=== PATIENT | female | born 1965 | race Caucasian/White ===

== ENCOUNTER 2024-07-24 18:30 | Emergency (ER) | payer SELFPAY ==
[2024-07-24] MEDS ORDERED: FENTANYL CITR 100 MCG/2 ML ONE ×3 (18:56→23:12)
[2024-07-24] MEDS ORDERED: ONDANSETRON 4 MG/2 ML VIAL ONE (18:56)
--- NOTE | 2024-07-24 20:19 | RAD REPORT ---
Exam:Femur Right CLINICAL HISTORY: Right leg pain. FINDINGS: No fracture involving the right femur seen.
--- NOTE | 2024-07-24 20:21 | RAD REPORT ---
EXAMINATION: Tib Fib Right CLINICAL INDICATION: Leg pain FINDINGS: Mildly depressed fracture involves the lateral tibial plateau and tibial spines extending inferiorly and medially. Mild to moderate displacement of the fracture fragments is present. Moderate joint effusion No dislocation
--- NOTE | 2024-07-24 20:33 | ER ---
Nurse's Notes [facility] Name: Lissette Harp Age: 59 yrs Sex: Female : 1965 Arrival Date: 07/24/2024 Time: 18:30 Bed 10 Private MD: Diagnosis: Mildly depressed fracture involving the lateral tibial plateau and tibial spines extending inferiorly and medially Presentation: 07/24 18:33 Chief complaint: Patient states: coming out of back door, fell off of step, right knee ko1 with deformity. Coronavirus screen: At this time, the client does not indicate any symptoms associated with coronavirus-19. Ebola Screen: No symptoms or risks identified at this time. Initial Sepsis Screen: Does the patient meet any 2 criteria? No. Patient's initial sepsis screen is negative. Does the patient have a suspected source of infection? No. Patient's initial sepsis screen is negative. Risk Assessment: Do you want to hurt yourself or someone else? Patient reports no desire to harm self or others. Onset of symptoms was July 24, 2024 at 18:00. 18:33 Method Of Arrival: Wheelchair ko1 18:33 Acuity: JESSE 3 ko1 Triage Assessment: 18:42 General: Appears uncomfortable, Behavior is calm, cooperative, appropriate for age. ko1 Pain: Complains of pain in right leg. Musculoskeletal: Bony deformity noted of right knee. Injury Description: Deformity sustained to right knee is displaced, was sustained 30-60 minutes ago. Historical: - Allergies: 18:42 No Known Allergies; ko1 - Home Meds: 18:42 None [Active]; ko1 - PMHx: 18:42 Seizure; ko1 - PSHx: 18:42 back surgery; brain surgery (aneurysm); ko1 - Immunization history:: Adult Immunizations unknown. - Infectious Disease History:: Denies. - Social history:: Smoking status: Reported history of juuling and/or vaping. Screenin:00 [facility] ED Fall Risk Assessment (Adult) History of falling in the last 3 months, tm6 including since admission Yes- single mechanical fall (1 pt) Confusion or Disorientation No (0 pts) Intoxicated or Sedated No (0 pts) Impaired Gait No (0 pts) Mobility Assist Device Used No (0 pt) Altered Elimination No (0 pt) Score/Fall Risk Level 0 - 2 = Low Risk Oriented to surroundings, Maintained a safe environment, Educated pt \T\ family on fall prevention, incl call for assistance when getting out of bed. Abuse screen: Denies threats or abuse. Denies injuries from another. Nutritional screening: No deficits noted. Tuberculosis screening: No symptoms or risk factors identified. Assessment: 19:00 General: Appears in no apparent distress. Behavior is calm, cooperative. Pain: tm6 Complains of pain in right knee and right leg Pain currently is 6 out of 10 on a pain scale. Neuro: Level of Consciousness is awake, alert, obeys commands, Oriented to person, place, time, situation. Cardiovascular: Patient's skin is warm and dry. Respiratory: Airway is patent Respiratory effort is even, unlabored, Respiratory pattern is regular, symmetrical. GI: No signs and/or symptoms were reported involving the gastrointestinal system. Abdomen is flat, non-distended. : No signs and/or symptoms were reported regarding the genitourinary system. EENT: No signs and/or symptoms were reported regarding the EENT system. Derm: No signs and/or symptoms reported regarding the dermatologic system. Musculoskeletal: Reports pain in right knee and right leg Pain is 6 out of 10 on a pain scale. 21:00 General: Appears uncomfortable, Behavior is calm, cooperative. Pain: Complains of pain ha1 in right leg Pain does not radiate. Pain currently is 6 out of 10 on a pain scale. Quality of pain is described as aching, Alleviated by medications. Neuro: Level of Consciousness is awake, alert, obeys commands, Oriented to person, place, time, situation. Cardiovascular: Capillary refill < 3 seconds Patient's skin is warm and dry. Respiratory: Airway is patent Respiratory effort is even, unlabored, Respiratory pattern is regular, symmetrical. GI: No signs and/or symptoms were reported involving the gastrointestinal system. : No signs and/or symptoms were reported regarding the genitourinary system. Derm: Skin is pink, warm \T\ dry. 23:01 Reassessment: nurse to nurse report given to JOO Rocha. ha1 23:10 Reassessment: Patient and/or family updated on plan of care and expected duration. Pain ha1 level reassessed. Patient is alert, oriented x 3, equal unlabored respirations, skin warm/dry/pink. pain 9/. 07/25 00:10 Reassessment: Patient and/or family updated on plan of care and expected duration. Pain ha1 level reassessed. Patient is alert, oriented x 3, equal unlabored respirations, skin warm/dry/pink. Vital Signs: 07/24 18:33 BP 105 / 69; Pulse 74; Resp 15; Temp 97.4; Pulse Ox 99% ; ko1 20:35 BP 108 / 68; Pulse 64; Resp 17; Temp 97.4; Pulse Ox 100% on R/A; MAP 79 mmHg; Pain 6/10;tm6 22:15 BP 107 / 74; Pulse 67; Resp 18 S; Pulse Ox 100% on R/A; ha1 23:00 BP 110 / 67; Pulse 64; Resp 18 S; Pulse Ox 100% on R/A; ha1 23:40 BP 97 / 62; Pulse 64; Resp 18 S; Pulse Ox 99% on R/A; ha1 20:35 Pain Scale: Adult tm6 ED Course: 18:32 Patient arrived in ED. im 18:32 Shea Lopes FNP-C is PHCP. kb 18:32 Aashish Rodriguez MD is Attending Physician. kb 18:42 Triage completed. ko1 18:42 Arm band placed on right wrist. Patient placed in an exam room, on a stretcher, on ko1 pulse oximetry, Patient notified of wait time. 19:00 Patient has correct armband on for positive identification. Bed in low position. Call tm6 light in reach. Side rails up X2. Provided Education on: use of call barlow. Client placed on continuous cardiac and pulse oximetry monitoring. NIBP monitoring applied. Pulse ox on. NIBP on. Door closed. Noise minimized. Warm blanket given. Pillow given. 19:00 Inserted saline lock: 20 gauge in left antecubital area, using aseptic technique. Blood am7 collected. Flushed with 10 mL NS. 19:42 Tib Fib Right XRAY In Process Unspecified. EDMS 19:42 Femur Right XRAY In Process Unspecified. EDMS 19:45 Lamine Lama, JOO is Primary Nurse. tm6 20:56 Knee immobilizer applied on right knee. tm6 07/25 00:16 No provider procedures requiring assistance completed. Patient transferred, IV remains ha1 in place. Administered Medications: 07/24 19:04 Drug: Ondansetron IVP 4 mg IVP once; over 2 minutes Route: IVP; Site: left antecubital; ld1 20:28 Follow up: Response: No adverse reaction tm6 19:04 Drug: fentaNYL (PF) IVP 25 mcg IVP once Route: IVP; Site: left antecubital; ld1 20:28 Follow up: Response: No adverse reaction tm6 20:50 Drug: fentaNYL (PF) IVP 25 mcg IVP once Route: IVP; Site: left antecubital; tm6 21:20 Follow up: Response: No adverse reaction; Marked relief of symptoms; Pain is decreased; ha1 RASS: Alert and Calm (0) 23:10 Drug: fentaNYL (PF) IVP 25 mcg IVP once Route: IVP; Site: left antecubital; ha1 23:30 Follow up: Response: No adverse reaction; Marked relief of symptoms; Pain is decreased; ha1 RASS: Alert and Calm (0) 07/25 00:06 CANCELLED (Physician Discretion): fentanyl (pf)25 mcg IVP once kb 00:11 Drug: Ketorolac IVP 15 mg IVP once Route: IVP; Site: left antecubital; ha1 00:16 Follow up: Response: No adverse reaction; Medication Administered at Departure ha1 00:11 Drug: NS 0.9% IV 1000 ml IV at 1000 ml once; to be given as a bolus over 60 minutes ha1 Route: IV; Rate: 1000 ml; Site: left antecubital; 00:15 Follow up: Response: No adverse reaction; IV Status: Infusion continued upon transfer ha1 Medication: 07/24 19:00 VIS not applicable for this client. tm6 Outcome: 20:32 ER care complete, transfer ordered by MD. sweeney 07/25 00:16 Transferred by ground EMS to [facility], Transfer form ha1 completed. X-rays sent w/ patient. Note: transferred by [facility] Condition: stable Discharge instructions given to patient, Instructed on the need for transfer, Demonstrated understanding of instructions, 00:19 Patient left the ED. ha1 Signatures: Dispatcher [employer] EDMS Shea Lopes, SUSAN ROMERO-Brittny Mast RN RN 1 Deepa Castano RN RN ha1 Maryann Ontiveros RN RN ko1 Isabel Moss Tawney, RN RN tm6 Binta Santana am7 Corrections: (The following items were deleted from the chart) 07/24 18:43 18:42 PSHx: None; guevara koMagdi 07/25 00:16 00:13 Response: No adverse reaction; Marked relief of symptoms ha1 ha1 00:19 00:16 Transferred by ground EMS Transfer form completed. X-rays sent w/ patient. ha1 ha1
--- NOTE | 2024-07-24 20:33 | EDPHYS ---
Physician Documentation [facility] Name: Lissette Harp Age: 59 yrs Sex: Female : 1965 Arrival Date: 07/24/2024 Time: 18:30 Bed 10 Private MD: ED Physician Aashish Rodriguez HPI: 07/24 20:31 This 59 yrs old Female presents to ER via Wheelchair with complaints of Leg Injury - kb right. 20:31 Patient is a 59-year-old female who fell down the steps of an RV just prior to arrival kb causing injury to right knee. States she is not sure if she fell onto the knee or twisted the knee but has been unable to bear weight since then. Denies any other injuries or trauma. States she did not hit her head, denies LOC.. Historical: - Allergies: 18:42 No Known Allergies; ko1 - Home Meds: 18:42 None [Active]; ko1 - PMHx: 18:42 Seizure; ko1 - PSHx: 18:42 back surgery; brain surgery (aneurysm); ko1 - Immunization history:: Adult Immunizations unknown. - Infectious Disease History:: Denies. - Social history:: Smoking status: Reported history of juuling and/or vaping. ROS: 20:30 Constitutional: As per HPI kb Exam: 20:30 Constitutional: This is a well developed, well nourished patient who is awake, alert, kb and in no acute distress. Head/Face: Normocephalic, atraumatic. ENT: Moist Mucous membranes Cardiovascular: Regular rate Respiratory: Respirations even and unlabored. No increased work of breathing. Talking in full sentences Skin: Warm, dry with normal turgor. Normal color. Neuro: Awake and alert, GCS 15, oriented to person, place, time, and situation. 20:30 Musculoskeletal/extremity: Extremities: grossly normal except: noted in the right knee: decreased ROM, pain, swelling, tenderness, ROM: limited active range of motion, in the right knee, Circulation is intact in all extremities. Sensation intact. Weight bearing: is unable to bear weight, Vital Signs: 18:33 BP 105 / 69; Pulse 74; Resp 15; Temp 97.4; Pulse Ox 99% ; ko1 20:35 BP 108 / 68; Pulse 64; Resp 17; Temp 97.4; Pulse Ox 100% on R/A; MAP 79 mmHg; Pain 6/10;tm6 22:15 BP 107 / 74; Pulse 67; Resp 18 S; Pulse Ox 100% on R/A; ha1 23:00 BP 110 / 67; Pulse 64; Resp 18 S; Pulse Ox 100% on R/A; ha1 23:40 BP 97 / 62; Pulse 64; Resp 18 S; Pulse Ox 99% on R/A; ha1 20:35 Pain Scale: Adult tm6 MDM: 18:32 Medical Screening Exam initiated kb 20:30 Differential diagnosis: dislocation, closed fracture, contusion. Data reviewed: vital kb signs, nurses notes. Consideration of Admission/Observation Escalation of care including admission/observation considered. pt will be transferred for trauma/ortho. Historians other than the Patient: Family Member: family. Counseling: I had a detailed discussion with the patient and/or guardian regarding the historical points, exam findings, and any diagnostic results supporting the discharge/admit diagnosis, radiology results, the need to transfer to another facility, [facility] does not immediately have the required specialist. 22:33 Management of patient was discussed with the following: Dr Aguiar, trauma at [facility], accepts pt for transfer. . 07/24 18:47 Order name: Tib Fib Right XRAY; Complete Time: 20:23 kb 07/24 18:47 Order name: Femur Right XRAY; Complete Time: 20:23 kb 07/24 18:47 Order name: IV Start; Complete Time: 19:04 kb 07/24 20:32 Order name: Knee Immobilizer; Complete Time: 20:56 kb Administered Medications: 19:04 Drug: Ondansetron IVP 4 mg IVP once; over 2 minutes Route: IVP; Site: left antecubital; ld1 20:28 Follow up: Response: No adverse reaction tm6 19:04 Drug: fentaNYL (PF) IVP 25 mcg IVP once Route: IVP; Site: left antecubital; ld1 20:28 Follow up: Response: No adverse reaction tm6 20:50 Drug: fentaNYL (PF) IVP 25 mcg IVP once Route: IVP; Site: left antecubital; tm6 21:20 Follow up: Response: No adverse reaction; Marked relief of symptoms; Pain is decreased; ha1 RASS: Alert and Calm (0) 23:10 Drug: fentaNYL (PF) IVP 25 mcg IVP once Route: IVP; Site: left antecubital; ha1 23:30 Follow up: Response: No adverse reaction; Marked relief of symptoms; Pain is decreased; ha1 RASS: Alert and Calm (0) 07/25 00:06 CANCELLED (Physician Discretion): fentanyl (pf)25 mcg IVP once kb 00:11 Drug: Ketorolac IVP 15 mg IVP once Route: IVP; Site: left antecubital; ha1 00:16 Follow up: Response: No adverse reaction; Medication Administered at Departure ha1 00:11 Drug: NS 0.9% IV 1000 ml IV at 1000 ml once; to be given as a bolus over 60 minutes ha1 Route: IV; Rate: 1000 ml; Site: left antecubital; 00:15 Follow up: Response: No adverse reaction; IV Status: Infusion continued upon transfer ha1 Disposition Summary: 07/24/24 20:32 Transfer Ordered Notes: Reason: Higher level of care kb Condition: Stable kb Problem: new kb Symptoms: are unchanged kb Transfer Location: [facility](07/24/24 22:34) kb Accepting Physician: Dr. Aguiar(07/25/24 00:19) ha1 Diagnosis - Mildly depressed fracture involving the lateral tibial plateau and tibial spines kb extending inferiorly and medially Forms: - Medication Reconciliation Form kb - SBAR form kb Signatures: Dispatcher [employer] EDShea Jacome FNP-C CADDY/CADDIE SUPERVISOR-Brittny Mast RN RN ld1 Deepa Castano RN RN ha1 Maryann Ontiveros, RN RN ko1 Lamine Lama, RN RN tm6 Corrections: (The following items were deleted from the chart) 07/24 18:43 18:42 PSHx: None; ko1 ko1 18:48 18:48 Femur Right+RAD.RAD.BRZ ordered. EDIL EDMS 22:33 20:32 Dr. sweeney kb 22:34 20:32 [facility] kb kb 22:34 22:33 Dr. Cosme sweeney 07/25 00:06 00:04 fentaNYL (PF) IVP 25 mcg IVP once ordered. patel kb 00:19 07/24 22:34 Dr. Aguiar kb ha1
[2024-07-25] MEDS ORDERED: FENTANYL CITR 100 MCG/2 ML ONE (00:05)
[2024-07-25] MEDS ORDERED: KETOROLAC 30 MG/ML INJ ONE (00:06)
[2024-07-25 07:13] VITALS: TEMP 97.4
[2024-07-25 07:15] VITALS: O2SAT 100
[2024-07-25 07:18] VITALS: BP 110/67
== END 2024-07-25 00:19 | disposition short-term general hospital (02) ==
LOC: ER 18:30
DX: S82.141A Displaced bicondylar fracture of right tibia, initial encounter for closed fracture (principal); W10.8XXA Fall (on) (from) other stairs and steps, initial encounter
CPT/HCPCS: 96374; 96375; 99285; J2405; J3010